=== PATIENT | female | born 2000 | race Caucasian/White ===

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

== ENCOUNTER 2024-06-21 01:55 | Inpatient (IN) | payer BC, SELFPAY ==
[2024-06-21] VITALS (12 sets, daily range): BP systolic 102–120; BP diastolic 46–96; PULSE 101–159; RESP 16–27; TEMP 36.4–37.6; O2SAT 100; BMI 24.4
--- NOTE | ~2024-06-21 | XR_ITS ---
XR chest 1V portable Ordering provider: Clement Kohler History: 23 years Female with . NEW ONSET COUGH YESTERDAY . Comparison: June 21, 2024 FINDINGS: MEDIASTINUM: The cardiac silhouette is not enlarged. LUNGS: No infiltrates, effusions or pneumothorax. OTHER: No free air under the diaphragm. IMPRESSION: No acute cardiopulmonary pathology. Reviewed, dictated and finalized at location A.
--- NOTE | ~2024-06-21 | US_ITS ---
US renal BI 06/21/2024 11:28 Procedure: Realtime transabdominal ultrasound of the kidneys and bladder. Indication: Acute renal insufficiency Comparison: No prior studies for comparison. Findings: Renal echotexture is normal bilaterally without hydronephrosis, contour deforming mass or r enal calculus. The right kidney measures 12.7 cm and left kidney measures 10.1 cm. Bladder within no rmal limits. Impression: 1: Unremarkable renal ultrasound. No stones, masses or hydronephrosis. Reviewed, dictated and finalized at location B. Impression: 1: Unremarkable renal ultrasound. No stones, masses or hydronephrosis.
--- NOTE | ~2024-06-21 | XR_ITS ---
EXAMINATION: XR chest 1V portable 06/21/2024 03:00 INDICATION: Diabetic ketoacidosis PROCEDURE: AP portable chest COMPARISON: No prior studies for comparison. FINDINGS: The lungs are clear. The cardiomediastinal silhouette is within normal limits. There are no pleural effusions. There is no pneumothorax suspected. IMPRESSION: 1: NO ACUTE CARDIOPULMONARY DISEASE. Reviewed, dictated and finalized at location B.
--- NOTE | 2024-06-21 02:11 | ECG_ITS ---
Test Date: 2024-06-21 02:12:10 Measurements Intervals [place] Rate: 148 P: 72 VT: 123 QRS: 86 QRSD: 96 T: 44 QT: 273 QTc: 428 Interpretive Statements SINUS TACHYCARDIA INCOMPLETE RIGHT BUNDLE BRANCH BLOCK ABNORMAL ECG No previous ECG available for comparison Electronically Signed On 06-21-2024 09:11:09 CDT by Klever Childs D.O.
[2024-06-21 02:14] LABS: Glucose Point of Care > 500 mg/dl (65-105)
[2024-06-21 02:26] LABS: Hematocrit 47.6 % (37.0-47.0); Hemoglobin 15.3 g/dL (12.0-15.0); Mean Corpuscular HGB Conc 32.1 g/dl (32-36); Mean Corpuscular Hemoglobin 31.4 pg (26-34); Mean Corpuscular Volume 97.7 fl (80-100); Mean Platelet Volume 9.8 fl (7.4-10.4); Platelet Count Result 651 k/mm3 (150-375); Red Blood Count 4.87 M/mm3 (4.2-5.4); Red Cell Distribution Width 12.3 % (11.5-14.5); White Blood Count 48.6 K/mm3 (4.5-10.0)
--- NOTE | 2024-06-21 02:34 | ED.NAVMDI ---
HPI - Nausea/Vomiting/Diarrhea General Chief complaint: Nausea/Vomiting/Diarrhea Stated complaint: n/v, DM, DKA Time Seen by Provider: 06/21/24 02:18 History of Present Illness HPI Narrative: 23-year-old type 1 diabetic on insulin therapy through a pump presenting to the emergency department with nausea, vomiting, diaphoresis, deep heavy respirations. Symptoms have been going on for the last day. Has never been in DKA or admitted for diabetic emergencies in the past. Patient stated that she does not feel like her pump is giving her any insulin. Patient is in moderate distress, breathing heavily, tachycardic, tachypneic, clinically dehydrated. She denies any chest pain or difficulty in breathing, headache, vision changes, fever, chills, abdominal pain or urinary complaints. Mom provides collateral formation and states that she is otherwise in her normal state of health and was never hospitalized in the past for DKA, she is on a insulin pump but no other exotic as insulin. No other prescription medications. Recently returned from college several weeks prior. Related Data Allergies Allergy/AdvReac Type Severity Reaction Status Date / Time No Known Allergies Allergy Verified 06/21/24 05:45 Review of Systems Review of Systems: As reviewed above in HPI [facility] Family History Family History (Updated 06/21/24 @ 06:56 by Karin Arnold RN) Mother Diabetes mellitus Adult hypothyroidism Grandparent Diabetes mellitus Grandparent Cancer Social History Social History Smoking status: Never smoker Alcohol intake: current Substance use: never Do You Feel Safe in your Home?: Yes Lack of Transportation: No Lack of Food: Never True Current Housing: I Have Housing Concerned About Future Housing: No Difficulty Paying Gas/Electric Bills: No Difficulty Paying for Meds: No Currently Unemployed: No Education: Bachelor's Degree Difficulty w/ Childcare or Family Care: No Spiritual care concerns: No Exam Narrative: GENERAL: Moderate distress, deep respirations, Kussmaul respiration, awake and answering questions HEAD: [Normocephalic, atraumatic.] EYES: [PERRLA and EOMI.] ENT: Nares clear, no rhinorrhea or epistaxis. Mucous membranes moist. NECK: Supple. CHEST: Clear to auscultation with deep breathing consider consistent with Kussmaul respirations. Symmetric chest rise. No signs of trauma. HEART: Tachycardic rate, regular rhythm. No murmur heard. [Normal peripheral pulses.] ABDOMEN: [Soft, nondistended], [nontender], [No rigidity or guarding] EXTREMITIES: Normal range of motion. [No edema.] SKIN: Warm, dry, no rash. NEURO: [No focal deficits]. Alert and oriented [x3.] PSYCH: [Normal mood and affect.] Course Vital Signs Vital signs: Vital Signs Temperature 36.4 C 06/21/24 01:59 Pulse Rate 159 H 06/21/24 01:59 Respiratory Rate 20 06/21/24 01:59 Blood Pressure 120/70 06/21/24 01:59 Pulse Oximetry 100 06/21/24 01:59 Temperature 36.4 C 06/21/24 01:59 Pulse Rate 128 H 06/21/24 04:25 Respiratory Rate 27 H 06/21/24 04:25 Blood Pressure 112/80 06/21/24 04:25 Pulse Oximetry 100 06/21/24 04:25 Oxygen Delivery Room Air 06/21/24 02:10 MDM - Nausea/Vomiting/Diarrhea MDM Narrative Medical decision making narrative: 23-year-old female with a history of type 1 insulin-dependent diabetes presenting for signs and symptoms of diabetic ketoacidosis. She has never been in DKA before admitted for diabetic emergencies in the past. She is on an insulin pump but no other medications. On review of the insulin pump apps on her phone it is not been giving her basal insulin rate and seems to be malfunctioning over last few hours with last corrected in dosages at 6:00 p.m. this is likely what triggered her diabetic ketoacidosis today although occult infectious process or electrolyte disturbances or exclude
[2024-06-21 02:41] LABS: Lactic Acid Reflex 3.6 mmol/L (0.7-2.0)
[2024-06-21] MEDS: LACTATED RINGERS 1,000 ML 999 ML IV CONT ×3 (02:41→03:40)
[2024-06-21] MEDS: ONDANSETRON INJ 4 MG/2 ML VIAL IV PUSH (02:42)
[2024-06-21 02:47] LABS: Band Neutrophils Percent 3 % (0-6); Lymphocytes Absolute Manual 2.91 K/mm3 (1.1-4.5); Monocytes Absolute Manual 2.43 K/mm3 (0.1-0.90); Monocytes Percent Manual 5 % (3-9); Neutrophils Absolute Manual 43.25 K/mm3 (1.7-7.2); Neutrophils Percent Manual 86 % (46-73); Platelet Estimate Increased (Adequate); Schistocytes None Seen; Smudge Cells PRESENT; Total Cells Counted 100
[2024-06-21 03:33] LABS: Hemoglobin A1C 10.7 % (<5.7)
[2024-06-21 03:48] LABS: Fractional Inspired Oxygen 21 %; HCO3 VBG 5.9 mEq/l (24.0-30.0); PO2 VBG 65.5 mmHg (35.0-45.0)
[2024-06-21 03:51] LABS: PCO2 VBG 21.3 mmHg (42.0-48.0); pH VBG 7.062 (7.300-7.400)
[2024-06-21 03:52] LABS: Device ROOM AIR
[2024-06-21 04:03] LABS: Magnesium 2.4 mg/dL (1.6-2.3); Phosphorus 6.1 mg/dL (2.5-4.5)
[2024-06-21] MEDS: INSULIN HUMAN REGULAR (*BKC) 100 UNITS in SODIUM CHLORIDE 0.9% IV 99 ML 7.5 UNITS IV CONT (04:03)
[2024-06-21] MEDS: LACTATED RINGERS 1,000 ML 200 ML IV CONT (04:20)
[2024-06-21 04:31] LABS: Alanine Aminotransferase 15 U/L (6-35); Albumin Level 4.3 g/dL (3.5-5.1); Alkaline Phosphatase 115 U/L (38-126); Aspartate Amino Transferase 24 U/L (14-36); Bilirubin,Total 0.5 mg/dL (0.2-1.3); Blood Urea Nitrogen 24 mg/dL (7-17); Calcium 9.1 mg/dL (8.4-10.2); Carbon Dioxide < 5 mmol/L (22-30); Chloride 105 mmol/L (98-107); Estimated CRCL calculation 53 ml/min; Estimated Glomerular Filt Rate 43; Potassium 6.7 mmol/L (3.4-5.0); Sodium 135 mmol/L (137-145)
[2024-06-21 04:36] LABS: Add Urine Microscopic? YES; Appearance Urine Clear (Clear); Bacteria Urine None Seen /hpf; Bilirubin Urine Negative (Negative); Blood Urine Negative (Negative); Color Urine Yellow (Yellow); Glucose Urine UA 3+ mg/dL (Negative); Ketones Urine 4+ mg/dL (Negative); Leukocyte Esterase Ur Negative LEU/UL (Negative); Nitrate Urine Negative (Negative); Protein Urine Trace mg/dL (Negative); RBC Urine 0-2 /hpf (0-2); Specific Grav Ur 1.021 (1.001-1.035); Squamous Epithelial Cell Urine None Seen /hpf (Few); Urobilinogen Urine 0.2 mg/dL (<2.0); WBC Urine 0-5 /hpf (0-3)
[2024-06-21 04:37] LABS: Glucose 753 mg/dL (65-110)
[2024-06-21 04:43] LABS: Lipase 46 U/L (23-300)
[2024-06-21 04:55] LABS: Blood Urea Nitrogen 24 mg/dL (7-17); Calcium 9.1 mg/dL (8.4-10.2); Carbon Dioxide < 5 mmol/L (22-30); Chloride 105 mmol/L (98-107); Estimated CRCL calculation 61 ml/min; Estimated Glomerular Filt Rate 51; Glucose 659 mg/dL (65-110); Potassium 6.2 mmol/L (3.4-5.0); Sodium 138 mmol/L (137-145)
[2024-06-21 04:58] LABS: Glucose Point of Care > 500 mg/dl (65-105)
[2024-06-21 05:24] LABS: Reflex Lactic Acid Yes or No Add Lactic
[2024-06-21 05:34] LABS: Glucose Point of Care > 500 mg/dl (65-105)
[2024-06-21 06:31] LABS: Glucose Point of Care 407 mg/dl (65-105)
--- NOTE | 2024-06-21 06:36 | ADMGEN ---
This patient, Dieudonne Godoy, was admitted to Intensive Care Unit-4 on 06/20/24 at 0610. Patient/family oriented to hospital policies and general routines including ID bracelet, bed and alarms, visiting hours, pain management, procedures, bathroom and other care routines, personal items, smoking policy, room service/diet, and visiting hours. Information on how to activate the Rapid Response Team has been discussed. Patient/Family are encouraged to report perceived risks to care and to ask questions if they do not understand what they are told or what they should do.
[2024-06-21 06:59] LABS: Blood Urea Nitrogen 22 mg/dL (7-17); Calcium 9.2 mg/dL (8.4-10.2); Carbon Dioxide < 5 mmol/L (22-30); Chloride 109 mmol/L (98-107); Estimated CRCL calculation 66 ml/min; Estimated Glomerular Filt Rate 56; Glucose 430 mg/dL (65-110); Potassium 5.2 mmol/L (3.4-5.0); Sodium 140 mmol/L (137-145)
--- NOTE | 2024-06-21 08:04 | PM.IMHP ---
H&P: HPI History of Present Illness Date/Time: 06/21/24 08:04 Chief Complaint: Nausea, vomiting and diarrhea Narrative: 23yo female with Type I DM who presents to the ED with complaints of nausea, vomiting and diarrhea. Patient is overly somnolent but arousable and does follow commands. Majority of the hx is obtained from the chart and from the family at bedside. Patient has had DM since November 2019. She is on an insulin pump but setting are unknown. Able to access intermediate readings showing she spends 51% very high and <1% low. Patient was feeling well up until the perl software engineer hours of 06/20 when she developed nausea, vomiting and SOB. She denies urinary symptoms. No cough. Family state the last dose of insulin was around 630am before it stopped functioning. Onset of symptoms began prior to last insulin dose. Family mention that she makes poor dietary choices. Her symptoms progressed throughout the day prompting her to present to the ED for evaluation. In the ED, she was tachycardic at 159 otherwise vital signs were normal. Bedside test was negative. Lactic acid was 3.6 -> 2. WBC 48K with left shift. Hgb 15 with plt count 651K. VBG 7.06// on RA. Potassium 6.7 with BUN 24 and Cr 1.5. Serum bicarb <5 with AG >25. Glucose 753. BHOB 10.6. A1c 10.7%. EKG showing sinus tachycardia. She was given Zofran, IV fluids and started on insulin drip per DKA protocol. She was admitted to the ICU. Review of Systems Review of Systems: ROS limited All systems reviewed & are unremarkable except as noted in HPI and below PMFSH Past Medical History Medical History (Updated 06/21/24 @ 08:35 by Kimani [place] MD) Type I diabetes mellitus Surgical History Surgical History (Updated 06/21/24 @ 08:55 by Clement Kohler MD) No history of previous surgery Family History Family History Mother Diabetes mellitus Adult hypothyroidism Grandparent Diabetes mellitus Grandparent Cancer Social History Social History (Updated 06/21/24 @ 08:56 by Clement Kohler MD) Social History: No tobacco. Social alcohol use. 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 Code status - Full Surrogate decision maker - mother and father Smoking status: Never smoker Alcohol intake: current Substance use: never Do You Feel Safe in your Home?: Yes Lack of Transportation: No Lack of Food: Never True Current Housing: I Have Housing Concerned About Future Housing: No Difficulty Paying Gas/Electric Bills: No Difficulty Paying for Meds: No Currently Unemployed: No Education: Bachelor's Degree Difficulty w/ Childcare or Family Care: No Spiritual care concerns: No Meds Home Medications and Allergies Allergies Allergy/AdvReac Type Severity Reaction Status Date / Time No Known Allergies Allergy Verified 06/21/24 05:45 Vital Signs Vital Signs - 24 hr 06/21/24 01:59 06/21/24 02:10 06/21/24 04:25 Temperature 97.6 F Pulse Rate 159 H 148 H 128 H Respiratory Rate 20 16 27 H Blood Pressure 120/70 116/70 112/80 Pulse Oximetry 100 100 100 Oxygen Delivery Room Air Exam Narrative: AF 97.6 112/80 128 27 100% ra Gen - well appearing female in no acute respiratory distress who is nontoxic-appearing lying semi recumbent in bed HEENT - normocephalic. Atraumatic. Pupils equal round and reactive. Sclera clear and anicteric. Nares patent. Neck - neck was supple. No dominant adenopathy, thyromegaly or masses. Chest - lungs are clear to auscultation anteriorly and in the flanks bilaterally. No wheezes or crackles. Breast exam was deferred. CV - heart was regular and tachycardic. S1-S2. No murmurs gallops or rubs. Abd - abdomen was soft. Nondistended. Positive bowel sounds. No organomegaly or masses. tenderness in the suprapubic regionbut no guarding or rebound. Ext - no clubbing, cyanosis or edema. 2+ PT pulses bilaterally. Neuro - patient is somnol
[2024-06-21 08:10] LABS: Glucose Point of Care 295 mg/dl (65-105)
--- NOTE | 2024-06-21 08:30 | WPDCNINT ---
Assessment and Plan Assessment and plan (1) DKA (diabetic ketoacidosis): Code(s): E11.10 - Type 2 diabetes mellitus with ketoacidosis without coma Status: Acute Assessment and Plan: DKA secondary to malfunctioning of insulin pump Patient was given IVF bolus and started on infusion Patient has been started on Insulin infusion and Q1H glucose monitoring will be continued Serial labs are ordered Replace electrolytes as needed npo (2) AI (acute kidney injury): Code(s): N17.9 - Acute kidney failure, unspecified Status: Acute Assessment and Plan: Acute kidney injury secondary to dehydration and hypovolemia Baseline creatinine unknown but patient may have some chronic kidney disease as she has elevated phosphorus level Check urinalysis, urine electrolytes, CK, renal ultrasound Monitor urine output electrolytes and creatinine (3) SIRS (systemic inflammatory response syndrome): Code(s): R65.10 - Systemic inflammatory response syndrome (SIRS) of non-infectious origin without acute organ dysfunction Status: Acute Assessment and Plan: Patient meets criteria for SIRS. There is no objective evidence of infection as UA and chest x-ray were clear (4) Hyperkalemia: Code(s): E87.5 - Hyperkalemia Status: Acute Assessment and Plan: Secondary to acidosis and acute kidney injury Potassium is improving with IV fluids and insulin Monitoring is ordered (5) Type I diabetes mellitus: Code(s): E10.9 - Type 1 diabetes mellitus without complications Status: Acute Assessment and Plan: See above Plan DVT prophylaxis -SCD Nutrition - npo Code Status - Full Code Family updated at bedside Total Critical Care Time - 30 minutes Due to a high probability of clinically significant, life threatening deterioration, the patient required my highest level of preparedness to intervene emergently and I personally spent this critical care time directly and personally managing the patient. This critical care time included obtaining a history; examining the patient; pulse oximetry; ordering and review of studies; arranging urgent treatment with development of a management plan; evaluation of patient's response to treatment; frequent reassessment; and discussions with other providers. It was exclusive of separately billable procedures and treating other patients and teaching time. Please see Assessment and Plan section and the rest of the note for further information on patient assessment and treatment Carding Machine Operator Consult Note Consult date: 06/21/24 Reason for consult: DKA HPI: Dieudonne Godoy is a 23 year old female with past medical history of diabetes type 1 who has been on insulin for last 4 years was brought into the ER last night with complaint of feeling sick. Patient was started on insulin pump almost a week ago. Prior to that she was on insulin injections. Yesterday morning patient started having nausea vomiting and not feeling well. As the day went patient became more and more L and requested to go to urgent care. Patient was brought to ER by her parents. Patient reported that patient's insulin pump appears to be not working correctly. On review of the juan on the phone it appears that patient stop receiving insulin sometime yesterday morning. In ER patient was tachycardic tachypneic and in distress. She denied any fever chills abdominal pain dysuria hematuria or diarrhea. Workup in the ER showed Bedside test was negative. Lactic acid was 3.6 -> 2. WBC 48K with left shift. Hgb 15 with plt count 651K. VBG 7.06//66 on RA. Potassium 6.7 with BUN 24 and Cr 1.5. Serum bicarb <5 with AG >25. Glucose 753. BHOB 10.6. A1c 10.7%. She was given Zofran, IV fluids and started on insulin drip per DKA protocol. She was admitted to the ICU. For further evaluation management. At this time patient is drowsy but arousable. She follows commands. She answers by noting her
[2024-06-21 08:50] LABS: Glucose Point of Care 257 mg/dl (65-105)
[2024-06-21 09:07] LABS: Creatine Kinase 61 U/L (30-135)
[2024-06-21 09:51] LABS: Glucose Point of Care 194 mg/dl (65-105)
--- NOTE | 2024-06-21 09:58 | PC.NURSE ---
Music Manager called and voicemail left at [phone].
[2024-06-21] MEDS: DEXTROSE 5%/0.45% SOD CHL 1,000 ML 150 ML IV CONT ×2 (10:04→16:45)
[2024-06-21 10:46] LABS: Glucose Point of Care 164 mg/dl (65-105)
[2024-06-21 11:05] LABS: Anion Gap 13 mmol/L (4-12); Blood Urea Nitrogen 18 mg/dL (7-17); Calcium 9.5 mg/dL (8.4-10.2); Carbon Dioxide 11 mmol/L (22-30); Chloride 114 mmol/L (98-107); Estimated CRCL calculation 97 ml/min; Estimated Glomerular Filt Rate > 60; Glucose 187 mg/dL (65-110); Potassium 4.8 mmol/L (3.4-5.0); Sodium 138 mmol/L (137-145)
[2024-06-21 11:29] LABS: Glucose Point of Care 186 mg/dl (65-105)
[2024-06-21 12:41] LABS: Glucose Point of Care 238 mg/dl (65-105)
[2024-06-21 13:39] LABS: Glucose Point of Care 264 mg/dl (65-105)
[2024-06-21 13:59] LABS: Sodium Urine Random 78 meq/L
[2024-06-21 14:52] LABS: Glucose Point of Care 259 mg/dl (65-105)
[2024-06-21 16:32] LABS: Glucose Point of Care 285 mg/dl (65-105)
[2024-06-21 16:50] LABS: Glucose Point of Care 253 mg/dl (65-105)
[2024-06-21 17:27] LABS: Anion Gap 14 mmol/L (4-12); Blood Urea Nitrogen 15 mg/dL (7-17); Carbon Dioxide 14 mmol/L (22-30); Chloride 109 mmol/L (98-107); Estimated CRCL calculation 87 ml/min; Estimated Glomerular Filt Rate > 60; Glucose 270 mg/dL (65-110); Potassium 4.3 mmol/L (3.4-5.0); Sodium 137 mmol/L (137-145)
[2024-06-21] MEDS: INSULIN HUMAN REGULAR (*BKC) 100 UNITS in SODIUM CHLORIDE 0.9% IV 99 ML IV CONT (17:33)
[2024-06-21 17:38] LABS: Glucose Point of Care 249 mg/dl (65-105)
[2024-06-21 19:06] LABS: Glucose Point of Care 206 mg/dl (65-105)
[2024-06-21 19:53] LABS: Glucose Point of Care 205 mg/dl (65-105)
[2024-06-21 20:57] LABS: Glucose Point of Care 215 mg/dl (65-105)
[2024-06-21 21:19] LABS: Anion Gap 12 mmol/L (4-12); Blood Urea Nitrogen 13 mg/dL (7-17); Calcium 9.1 mg/dL (8.4-10.2); Carbon Dioxide 15 mmol/L (22-30); Chloride 109 mmol/L (98-107); Estimated CRCL calculation 110 ml/min; Estimated Glomerular Filt Rate > 60; Glucose 215 mg/dL (65-110); Potassium 4.1 mmol/L (3.4-5.0); Sodium 136 mmol/L (137-145)
[2024-06-21] MEDS: ACETAMINOPHEN 325 MG TABLET 650 MG PO (21:51)
[2024-06-21 21:57] LABS: Glucose Point of Care 208 mg/dl (65-105)
[2024-06-21] MEDS: INSULIN GLARGINE (*BKC) 100 UNITS/ML 15 UNITS SUB-Q (22:36)
[2024-06-22] VITALS (15 sets, daily range): BP systolic 104–126; BP diastolic 49–91; PULSE 75–120; RESP 13–23; TEMP 36.7–37.1; O2SAT 98–100
[2024-06-22 00:05] LABS: Glucose Point of Care 180 mg/dl (65-105)
[2024-06-22 04:09] LABS: Glucose Point of Care 347 mg/dl (65-105)
[2024-06-22] MEDS: INSULIN ASPART (*BKC) 100 UNITS/ML SUB-Q ×2 (04:09→23:16)
[2024-06-22 04:41] LABS: Basophils Percent Auto 0.1 % (0.2-1.2); Hematocrit 37.8 % (37.0-47.0); Hemoglobin 12.7 g/dL (12.0-15.0); Immature Granulocyte Absolute 0.15 K/mm3 (0.00-0.031); Immature Granulocyte Percent A 0.8 % (0-0.5); Lymphocytes Absolute Auto 1.25 K/mm3 (0.9-3.2); Lymphocytes Percent Auto 6.9 % (18.3-44.2); Mean Corpuscular HGB Conc 33.6 g/dl (32-36); Mean Corpuscular Volume 92.2 fl (80-100); Monocytes Absolute Auto 1.5 K/mm3 (0.1-0.6); Monocytes Percent Auto 8.1 % (2.6-8.5); Neutrophils Absolute Auto 15.1 K/mm3 (1.3-6.7); Neutrophils Percent Auto 84.1 % (45.5-73.1); Platelet Count Result 352 k/mm3 (150-375); Red Cell Distribution Width 12.6 % (11.5-14.5)
[2024-06-22 04:58] LABS: Alanine Aminotransferase 15 U/L (6-35); Albumin Level 4.1 g/dL (3.5-5.1); Alkaline Phosphatase 89 U/L (38-126); Anion Gap 20 mmol/L (4-12); Aspartate Amino Transferase 39 U/L (14-36); Bilirubin,Total 0.5 mg/dL (0.2-1.3); Blood Urea Nitrogen 14 mg/dL (7-17); Calcium 9.4 mg/dL (8.4-10.2); Carbon Dioxide 9 mmol/L (22-30); Chloride 108 mmol/L (98-107); Estimated CRCL calculation 97 ml/min; Estimated Glomerular Filt Rate > 60; Glucose 378 mg/dL (65-110); Magnesium 2.1 mg/dL (1.6-2.3); Potassium 4.2 mmol/L (3.4-5.0); Sodium 137 mmol/L (137-145)
[2024-06-22] MEDS: INSULIN HUMAN REGULAR (*BKC) 100 UNITS in SODIUM CHLORIDE 0.9% IV 99 ML 7 UNITS IV CONT (08:12)
[2024-06-22] MEDS: LACTATED RINGERS 1,000 ML 150 ML IV CONT ×2 (08:12→16:15)
[2024-06-22 08:29] LABS: Glucose Point of Care 339 mg/dl (65-105)
--- NOTE | 2024-06-22 09:03 | WPDINTPN ---
Progress Note: A&P Assessment and Plan (1) DKA (diabetic ketoacidosis): Code(s): E11.10 - Type 2 diabetes mellitus with ketoacidosis without coma Status: Acute Assessment and Plan: DKA secondary to malfunctioning of insulin pump Patient was given IVF bolus and started on insulin infusion Yesterday evening patient's anion gap closed patient was transition to subcutaneous insulin. Patient was given 15 units of Lantus. Patient ate her dinner. This morning her blood sugar is elevated in 300 range anion gap is 20. At this time I will restart patient insulin infusion along with IV fluids with serial BMP monitoring. Since patient is now asymptomatic I will continue with the diet. Will transition back to subcutaneous insulin muscle and gap closes and CO2 improves Replace electrolytes as needed (2) AI (acute kidney injury): Code(s): N17.9 - Acute kidney failure, unspecified Status: Acute Assessment and Plan: Acute kidney injury secondary to dehydration and hypovolemia Unremarkable renal ultrasound Renal function has normalized with IV fluids Monitor urine output electrolytes and creatinine (3) SIRS (systemic inflammatory response syndrome): Code(s): R65.10 - Systemic inflammatory response syndrome (SIRS) of non-infectious origin without acute organ dysfunction Status: Acute Assessment and Plan: Patient meets criteria for SIRS. There is no objective evidence of infection as UA and chest x-ray were clear (4) Hyperkalemia: Code(s): E87.5 - Hyperkalemia Status: Acute Assessment and Plan: Secondary to acidosis and acute kidney injury Resolved after treatment Monitoring is ordered (5) Type I diabetes mellitus: Code(s): E10.9 - Type 1 diabetes mellitus without complications Status: Acute Assessment and Plan: See above Plan DVT prophylaxis -Lovenox Nutrition -consistent carbohydrate diet Code Status - Full Code Family updated at bedside Incentive spirometry Up in chair Total Critical Care Time - 30 minutes Due to a high probability of clinically significant, life threatening deterioration, the patient required my highest level of preparedness to intervene emergently and I personally spent this critical care time directly and personally managing the patient. This critical care time included obtaining a history; examining the patient; pulse oximetry; ordering and review of studies; arranging urgent treatment with development of a management plan; evaluation of patient's response to treatment; frequent reassessment; and discussions with other providers. It was exclusive of separately billable procedures and treating other patients and teaching time. Please see Assessment and Plan section and the rest of the note for further information on patient assessment and treatment Subjective Date/time seen: 06/22/24 Overnight events reviewed. Afebrile Yesterday patient's anion gap was closed and patient was transition to subcutaneous insulin. Patient was started on diet. Patient ate half the meal tray. This morning she states she had some nausea last night but at this time she feels good and denies any new complaints. She is much more awake and alert. Patient denies fever, chest pain, shortness of breath, cough, nausea vomiting, abdominal pain,, diarrhea, headache or constipation.. All the systems were reviewed and were negative. Lab work this morning shows patient going back into DKA. Patient was started back on insulin infusion. Afebrile, other vital signs stable Sinus tachycardia monitor Review of Systems Review of Systems: All systems reviewed & are unremarkable except as noted in HPI and below (Subjective) Exam Narrative: General: Pt is alert awake and in NAD Lungs/Chest: Trachea central Clear BS B/L, No crackles or wheezing. Cardiac: RRR. Normal S1 S2. No murmurs Circulation: Pedal pulses are intact and symmetrical. Abdomen: Normal b
[2024-06-22] MEDS: ENOXAPARIN 40 MG/0.4 ML SYRINGE SUB-Q (09:08)
[2024-06-22] MEDS: DEXTROSE 5%/0.45% SOD CHL 1,000 ML 150 ML IV CONT (09:11)
[2024-06-22 09:17] LABS: Glucose Point of Care 248 mg/dl (65-105)
[2024-06-22 09:21] LABS: Anion Gap 20 mmol/L (4-12); Blood Urea Nitrogen 13 mg/dL (7-17); Carbon Dioxide 8 mmol/L (22-30); Chloride 110 mmol/L (98-107); Estimated CRCL calculation 110 ml/min; Estimated Glomerular Filt Rate > 60; Glucose 304 mg/dL (65-110); Potassium 4.4 mmol/L (3.4-5.0); Sodium 138 mmol/L (137-145)
[2024-06-22 10:35] LABS: Glucose Point of Care 184 mg/dl (65-105)
[2024-06-22 11:31] LABS: Glucose Point of Care 168 mg/dl (65-105)
[2024-06-22] MEDS: ACETAMINOPHEN 325 MG TABLET 650 MG PO (11:59)
[2024-06-22 12:07] LABS: Glucose Point of Care 147 mg/dl (65-105)
[2024-06-22 12:35] LABS: Anion Gap 14 mmol/L (4-12); Blood Urea Nitrogen 12 mg/dL (7-17); Calcium 9.4 mg/dL (8.4-10.2); Carbon Dioxide 14 mmol/L (22-30); Chloride 108 mmol/L (98-107); Estimated CRCL calculation 110 ml/min; Estimated Glomerular Filt Rate > 60; Glucose 169 mg/dL (65-110); Sodium 136 mmol/L (137-145)
[2024-06-22 13:44] LABS: Glucose Point of Care 228 mg/dl (65-105)
[2024-06-22 14:46] LABS: Glucose Point of Care 298 mg/dl (65-105)
[2024-06-22] MEDS: LACTATED RINGERS 1,000 ML 999 ML IV CONT (15:24)
[2024-06-22 15:32] LABS: Glucose Point of Care 266 mg/dl (65-105)
[2024-06-22 16:18] LABS: Glucose Point of Care 253 mg/dl (65-105)
[2024-06-22 17:41] LABS: Anion Gap 7 mmol/L (4-12); Blood Urea Nitrogen 11 mg/dL (7-17); Calcium 8.6 mg/dL (8.4-10.2); Carbon Dioxide 20 mmol/L (22-30); Chloride 107 mmol/L (98-107); Estimated CRCL calculation 97 ml/min; Estimated Glomerular Filt Rate > 60; Glucose 229 mg/dL (65-110); Potassium 3.7 mmol/L (3.4-5.0); Sodium 134 mmol/L (137-145)
[2024-06-22 17:42] LABS: Glucose Point of Care 207 mg/dl (65-105)
--- NOTE | 2024-06-22 18:16 | PM.IMPN ---
Progress Note: A&P Assessment and Plan (1) DKA (diabetic ketoacidosis): Code(s): E11.10 - Type 2 diabetes mellitus with ketoacidosis without coma Status: Acute Assessment and Plan: Patient presents with hyperglycemia, elevated BHOB, serum bicarb <5 and elevated anion gap consistent with DKA. DKA with etiology unclear. Presumably her insulin pump is functioning normally. Patient was given IVF bolus and started on insulin infusion. Yesterday evening patient's anion gap closed patient was transition to subcutaneous insulin. Patient was given 15 units of Lantus. Patient ate her dinner. This morning her blood sugar is elevated in 300 range anion gap is 20. Insulin infusion and IV fluids were resumed with serial BMP monitoring. Anion gap better. Will transition back to subcutaneous insulin once gap closes and CO2 improves Replace electrolytes as needed (2) AI (acute kidney injury): Code(s): N17.9 - Acute kidney failure, unspecified Status: Acute Assessment and Plan: Acute kidney injury secondary to dehydration and hypovolemia Unremarkable renal ultrasound Renal function has normalized with IV fluids Monitor urine output electrolytes and creatinine (3) SIRS (systemic inflammatory response syndrome): Code(s): R65.10 - Systemic inflammatory response syndrome (SIRS) of non-infectious origin without acute organ dysfunction Status: Acute Assessment and Plan: Patient meets criteria for SIRS. There is no objective evidence of infection as UA and chest x-ray were clear Mild abdominal pain noted on exam yesterday but not present today. WBC trending down Follow (4) Hyperkalemia: Code(s): E87.5 - Hyperkalemia Status: Acute Assessment and Plan: Secondary to acidosis and acute kidney injury Resolved after treatment Continue to monitor (5) Type I diabetes mellitus: Code(s): E10.9 - Type 1 diabetes mellitus without complications Status: Acute Assessment and Plan: A1c 10.7% speaks to poor glycemic control in general. As above certified adapted physical educator and market editor consulted Plan DVT prophylaxis -Lovenox Code Status - Full Code Subjective Date/time seen: 06/22/24 18:16 Interval history: 23yo female with Type I DM who presents to the ED with complaints of nausea, vomiting and diarrhea. She feels much better. Tolerating oral intake. Still with nausea but no vomiting. Slept well. She believes that her insulinpump is working but was not sure why he glucose would not respond to insulin. She denies cough, fever or urinary symptoms prior to admission Exam Narrative: AF 98.5 114/69 75 19 100% ra Gen - NARD Chest - CTA bilaterally, nml RR CV - RRR S1/S2 Abd - Soft, NT/ND, Positive BS Ext - No pedal edema Neuro - Alert and oriented. Nonfocal exam. Psych - Nml mood and affect Skin - Warm and dry Objective Data Vital Signs Vital Signs: Vital Signs - 24 hr 06/21/24 19:00 06/21/24 20:00 06/21/24 20:00 Temperature 99.7 F H Pulse Rate 102 H 114 H 107 H Respiratory Rate 20 18 Blood Pressure 110/62 113/68 Pulse Oximetry 100 100 Oxygen Delivery 06/21/24 20:00 06/21/24 22:00 06/21/24 22:00 Temperature Pulse Rate 115 H 115 H Respiratory Rate 25 H Blood Pressure 102/46 L Pulse Oximetry 100 Oxygen Delivery Room Air 06/22/24 00:00 06/22/24 00:00 06/22/24 02:00 Temperature Pulse Rate 103 H 110 H Respiratory Rate 18 17 Blood Pressure 104/49 L 107/56 L Pulse Oximetry 99 98 Oxygen Delivery Room Air 06/22/24 03:00 06/22/24 00:00 06/22/24 02:00 Temperature Pulse Rate 104 H 98 110 H Respiratory Rate 20 Blood Pressure Pulse Oximetry 99 Oxygen Delivery 06/22/24 04:00 06/22/24 04:00 06/22/24 04:00 Temperature 98.5 F Pulse Rate 117 H 110 H Respiratory Rate 16 Blood Pressure 115/61 Pulse Oximetry 99 Oxygen Delivery Room Air 06/22/24 06
[2024-06-22 18:53] LABS: Glucose Point of Care 192 mg/dl (65-105)
[2024-06-22] MEDS: INSULIN GLARGINE (*BKC) 100 UNITS/ML 25 UNITS SUB-Q (19:54)
[2024-06-22 20:00] LABS: Glucose Point of Care 250 mg/dl (65-105)
[2024-06-22 20:23] LABS: Anion Gap 9 mmol/L (4-12); Blood Urea Nitrogen 12 mg/dL (7-17); Calcium 8.7 mg/dL (8.4-10.2); Carbon Dioxide 20 mmol/L (22-30); Chloride 106 mmol/L (98-107); Estimated CRCL calculation 97 ml/min; Estimated Glomerular Filt Rate > 60; Glucose 257 mg/dL (65-110); Potassium 3.6 mmol/L (3.4-5.0); Sodium 135 mmol/L (137-145)
[2024-06-22] MEDS: PHENOL/SOD PHENO SPRAY CHERRY (*BKC) 1 SPRAY MUCOUS MEM (23:23)
[2024-06-23] VITALS (10 sets, daily range): BP systolic 113–132; BP diastolic 69–89; PULSE 66–93; RESP 18–23; TEMP 36.6; O2SAT 98–100; BMI 24.4
[2024-06-23 01:05] LABS: Anion Gap 7 mmol/L (4-12); Blood Urea Nitrogen 13 mg/dL (7-17); Calcium 8.8 mg/dL (8.4-10.2); Carbon Dioxide 22 mmol/L (22-30); Chloride 107 mmol/L (98-107); Estimated CRCL calculation 110 ml/min; Estimated Glomerular Filt Rate > 60; Glucose 243 mg/dL (65-110); Potassium 3.4 mmol/L (3.4-5.0); Sodium 136 mmol/L (137-145)
[2024-06-23] MEDS: INSULIN ASPART (*BKC) 100 UNITS/ML SUB-Q ×5 (03:07→16:56)
[2024-06-23 03:14] LABS: Glucose Point of Care 238 mg/dl (65-105)
[2024-06-23 03:14] LABS: Glucose Point of Care 232 mg/dl (65-105)
[2024-06-23 03:14] LABS: Glucose Point of Care 262 mg/dl (65-105)
[2024-06-23 03:56] LABS: Basophils Percent Auto 0.3 % (0.2-1.2); Eosinophils Absolute Auto 0.1 K/mm3 (0-0.3); Eosinophils Percent Auto 0.6 % (0-4.4); Hemoglobin 11.4 g/dL (12.0-15.0); Immature Granulocyte Absolute 0.03 K/mm3 (0.00-0.031); Immature Granulocyte Percent A 0.3 % (0-0.5); Lymphocytes Absolute Auto 2.09 K/mm3 (0.9-3.2); Lymphocytes Percent Auto 22.4 % (18.3-44.2); Mean Corpuscular HGB Conc 34.5 g/dl (32-36); Mean Corpuscular Volume 89.7 fl (80-100); Mean Platelet Volume 8.8 fl (7.4-10.4); Monocytes Absolute Auto 0.8 K/mm3 (0.1-0.6); Monocytes Percent Auto 8.8 % (2.6-8.5); Neutrophils Absolute Auto 6.3 K/mm3 (1.3-6.7); Neutrophils Percent Auto 67.6 % (45.5-73.1); Platelet Count Result 253 k/mm3 (150-375); Red Blood Count 3.68 M/mm3 (4.2-5.4); Red Cell Distribution Width 12.3 % (11.5-14.5); White Blood Count 9.3 K/mm3 (4.5-10.0)
[2024-06-23 04:14] LABS: Alanine Aminotransferase 14 U/L (6-35); Albumin Level 3.2 g/dL (3.5-5.1); Alkaline Phosphatase 74 U/L (38-126); Anion Gap 11 mmol/L (4-12); Aspartate Amino Transferase 29 U/L (14-36); Bilirubin,Total 0.5 mg/dL (0.2-1.3); Blood Urea Nitrogen 13 mg/dL (7-17); Calcium 8.7 mg/dL (8.4-10.2); Carbon Dioxide 19 mmol/L (22-30); Chloride 107 mmol/L (98-107); Estimated CRCL calculation 126 ml/min; Estimated Glomerular Filt Rate > 60; Glucose 235 mg/dL (65-110); Magnesium 1.8 mg/dL (1.6-2.3); Potassium 3.3 mmol/L (3.4-5.0); Sodium 137 mmol/L (137-145)
[2024-06-23 06:43] LABS: Glucose Point of Care 188 mg/dl (65-105)
[2024-06-23 07:40] LABS: Glucose Point of Care 182 mg/dl (65-105)
[2024-06-23] MEDS: ENOXAPARIN 40 MG/0.4 ML SYRINGE SUB-Q (09:24)
[2024-06-23] MEDS: SERTRALINE HCL 50 MG TABLET PO (09:24)
[2024-06-23] MEDS: POTASSIUM CHLORIDE 20 MEQ ER TABLET 40 MEQ PO (09:25)
--- NOTE | 2024-06-23 11:28 | PC.NURSE ---
Hospitalist called for down grade orders. During conversation, received orders for chest x-ray related to cough. orders put in
[2024-06-23 11:34] LABS: Glucose Point of Care 200 mg/dl (65-105)
--- NOTE | 2024-06-23 11:34 | WPDINTPN ---
Progress Note: A&P Assessment and Plan (1) DKA (diabetic ketoacidosis): Code(s): E11.10 - Type 2 diabetes mellitus with ketoacidosis without coma Status: Acute Assessment and Plan: DKA secondary to malfunctioning of insulin pump Patient was given IVF bolus and started on insulin infusion Her anion gap had closed on 06/21 and patient was transitioned to long-acting insulin and sliding scale insulin. - Patient ate her dinner on 06/21, and on 06/22 in the morning her blood sugars were elevated in 300 range anion gap is 20. Patient was restarted on insulin infusion -06/22: Evening her anion gap closed again, patient was given Lantus 25 units and started on high-dose sliding scale along with insulin 5 units with meals -this morning patient's blood sugars have improved, anion gap remains closed, is not acidotic -will start her home insulin pump, evaluate to later this afternoon, blood sugars remain stable patient may be able to transfer out -replaced potassium (2) AI (acute kidney injury): Code(s): N17.9 - Acute kidney failure, unspecified Status: Acute Assessment and Plan: Acute kidney injury secondary to dehydration and hypovolemia Unremarkable renal ultrasound Renal function has normalized with IV fluids Monitor urine output electrolytes and creatinine (3) SIRS (systemic inflammatory response syndrome): Code(s): R65.10 - Systemic inflammatory response syndrome (SIRS) of non-infectious origin without acute organ dysfunction Status: Acute Assessment and Plan: Patient meets criteria for SIRS. There is no objective evidence of infection as UA and chest x-ray were clear (4) Hyperkalemia: Code(s): E87.5 - Hyperkalemia Status: Acute Assessment and Plan: Secondary to acidosis and acute kidney injury Resolved after treatment Monitoring is ordered (5) Type I diabetes mellitus: Code(s): E10.9 - Type 1 diabetes mellitus without complications Status: Acute Assessment and Plan: See above Plan DVT prophylaxis -Lovenox Nutrition -consistent carbohydrate diet Code Status - Full Code Family updated at bedside Incentive spirometry Up in chair Total Critical Care Time - 33 minutes Due to a high probability of clinically significant, life threatening deterioration, the patient required my highest level of preparedness to intervene emergently and I personally spent this critical care time directly and personally managing the patient. This critical care time included obtaining a history; examining the patient; pulse oximetry; ordering and review of studies; arranging urgent treatment with development of a management plan; evaluation of patient's response to treatment; frequent reassessment; and discussions with other providers. It was exclusive of separately billable procedures and treating other patients and teaching time. Please see Assessment and Plan section and the rest of the note for further information on patient assessment and treatment Subjective Date/time seen: 06/23/24 11:34 Interval history: Reason for consult: Diabetic ketoacidosis, acute kidney injury, SIRS, hyperkalemia Patient seen examined this morning, is awake, alert, oriented, pleasant female has been off insulin infusion since last evening, was transition to long-acting insulin Lantus and sliding scale insulin. Denies any nausea, vomiting, abdominal pain. States he feels better, hemodynamically stable, urine output has been adequate afebrile, leukocytosis has resolved Review of Systems Review of Systems: All systems reviewed & are unremarkable except as noted in HPI and below (Subjective) Exam Narrative: General: Pt is alert awake and in NAD Lungs/Chest: Trachea central Clear BS B/L, No crackles or wheezing. Cardiac: RRR. Normal S1 S2. No murmurs Circulation: Pedal pulses are intact and symmetrical. Abdomen: Normal bowel sounds.. Soft. NT. ND. Extremities: No clubbin
[2024-06-23 14:27] LABS: BEDSIDEPREGUCG Negative (Negative)
[2024-06-23 16:49] LABS: Glucose Point of Care 232 mg/dl (65-105)
--- NOTE | 2024-06-23 17:22 | PM.DS ---
DS: Admitting Diagnosis Discharge Date 06/23/24 Admitting Diagnosis Nausea, vomiting DS: Discharge Diagnosis Discharge Diagnosis (1) DKA (diabetic ketoacidosis): Code(s): E11.10 - Type 2 diabetes mellitus with ketoacidosis without coma Status: Acute (2) AI (acute kidney injury): Code(s): N17.9 - Acute kidney failure, unspecified Status: Acute (3) SIRS (systemic inflammatory response syndrome): Code(s): R65.10 - Systemic inflammatory response syndrome (SIRS) of non-infectious origin without acute organ dysfunction Status: Acute (4) Hyperkalemia: Code(s): E87.5 - Hyperkalemia Status: Acute (5) Type I diabetes mellitus: Code(s): E10.9 - Type 1 diabetes mellitus without complications Status: Acute DS: Summary Hospital Course Reason for hospitalization: 23yo female with Type I DM who presents to the ED with complaints of nausea, vomiting. Please see H&P for details. Hospital Course: Patient presents with hyperglycemia, elevated BHOB, serum bicarb <5 and elevated anion gap consistent with DKA. Presumably her insulin pump was not functioning normally but later determined that it has burt functional. Patient was given IVF bolus and started on insulin infusion. Anion gap closed and patient was transition to subcutaneous insulin. We resumed her insulin pump to ensure that it was functioning. Glucose remained in the low 200 range which is within her baseline so felt pump working normally. She did have acute kidney injury secondary to dehydration and hypovolemia. Renal ultrasound was unremarkable. Renal function has normalized with IV fluids. Patient meets criteria for SIRS. There is no objective evidence of infection as UA and chest x-ray were clear. Mild abdominal pain noted on exam initially but not present today. test was negative. A1c was 10.7% which speaks to poor glycemic control in general. She was seen by the museum educator and ecommerce manager. She overall did well and was able to be discharged home on 06/23/24. Status at Discharge Cognitive/behavioral status at discharge: stable Time Spent with Patient Time attestation: Total time spent providing and/or coordinating discharge services: 38 minutes Time spent: Greater than 30 minutes Exam Narrative: AF 98.0 132/89 88 18 100% ra Gen - NARD Chest - CTA bilaterally, nml RR CV - RRR S1/S2 Abd - Soft, NT/ND, Positive BS Ext - No pedal edema Neuro - Alert and oriented. Nonfocal exam. Psych - Nml mood and affect Skin - Warm and dry DS: Data Data Completed and Pending Labs on day of discharge: Labs from last 24 hours 06/23/24 06/23/24 06/23/24 16:47 11:32 07:37 WBC RBC Hgb Hct MCV MCH MCHC RDW Plt Count MPV Immature Gran % (Auto) Neut % (Auto) Lymph % (Auto) Beadle % (Auto) Eos % (Auto) Baso % (Auto) Lymph # (Auto) Beadle # (Auto) Eos # (Auto) Baso # (Auto) Abs Immat Gran (auto) Absolute Neuts (auto) Absolute Nucleated RBC Nucleated RBC % Sodium Potassium Chloride Carbon Dioxide Anion Gap BUN Creatinine Estim Creat Clear Calc Estimated GFR Glucose POC Capillary Glucose 232 H 200 H 182 H Calcium Magnesium Total Bilirubin AST ALT Alkaline Phosphatase Total Protein Albumin POC Urine HCG, Qual 06/23/24 06/23/24 06/23/24 06:36 03:50 03:04 WBC 9.3 RBC 3.68 L Hgb 11.4 L Hct 33.0 L MCV 89.7 MCH 31.0 MCHC 34.5 RDW 12.3 Plt Count 253 MPV 8.8 Immature Gran % (Auto) 0.3 Neut % (Auto) 67.6 Lymph % (Auto) 22.4 Beadle % (Auto) 8.8 H Eos % (Auto) 0.6 Baso % (Auto) 0.3 Lymph # (Auto) 2.09 Beadle # (Auto) 0.8 H Eos # (Auto) 0.1 Baso # (Auto) 0.0 Abs Immat Gran (auto) 0.03 Absolute Neuts (auto) 6.3 Absolute Nucleated RBC 0.000 Nucleated RBC % 0.0 So
--- NOTE | 2024-06-23 18:20 | PC.NURSE ---
Discharged from room at 1815pm. Discussed discharge instructions and copies provided. Patient and family member verbalizes understanding at this time and deny further questions. Patient was escorted out to personal vehicle at entrance 1.
== END 2024-06-23 18:15 | disposition home or self-care (01) | DRG 638 ==
LOC: ANHED 02:55 → ANHICU 05:58
PROVIDERS: Internal Medicine; Admitting Provider Internal Medicine; Emergency Provider Student in an Organized Health Care Education/Training Program; Visit Provider Internal Medicine
DX: E10.10 Type 1 diabetes mellitus with ketoacidosis without coma (principal); N17.9 Acute kidney failure, unspecified; R65.10 Systemic inflammatory response syndrome (SIRS) of non-infectious origin without acute organ dysfunction; E87.5 Hyperkalemia; Z96.41 Presence of insulin pump (external) (internal)
CPT/HCPCS: 36415; 71045; 76775; 80048; 80053; 81001; 81025; 82010; 82550; 82570; 82803; 82948; 83036; 83605; 83690; 83735; 84100; 84300; 85025; 93005; 96361; 96365; 96375; 99285; A9270; J1650; J1815; J2405; J7120